=== PATIENT | male | born 1960 | race Caucasian/White ===

== ENCOUNTER 2016-12-15 19:54 | Emergency (ER) | payer OTHER ==
[~2016-12-15] VITALS: Ht 177.8 cm; Wt 83.9 kg
[~2016-12-15 19:54] MED LIST: AUGMENTIN 500M500 MG PO; CIPRO 500MG (E500 MG PO; KEFLEX500 MG PO; LOSARTAN POTASS25 M1 PO; NORCO 5-325 TA1 EACH PO; VICODIN5-300 PO
[2016-12-15 21:19] VITALS: BP 148/87
--- NOTE | 2016-12-15 21:26 | ED INFLUENZA/URI COMPLAINT ---
History of Present Illness General Chief Complaint: General Adult Stated Complaint: FEBRILE PER PATIENT X 1 DAY Source: patient, old records Exam Limitations: no limitations Vital Signs & Intake/Output Vital Signs & Intake/Output Vital Signs Date Time Temp Pulse Resp B/P Pulse O2 O2 Flow FiO2 Ox Delivery Rate 12/15 2118 68 16 148/87 97 Room Air 12/15 2058 100.3 12/15 2001 100.3 87 18 144/94 97 Room Air ED Intake and Output 12/16 0000 12/15 1200 Intake Total Output Total Balance Patient 185 lb Weight Allergies Coded Allergies: No Known Allergies (12/15/16) Reconcile Medications Losartan Potassium 25 MG TABLET 1 TAB PO DAILY BP (Reported) Ondansetron HCl (Zofran) 4 MG TABLET 1 TAB PO Q6-8P PRN NAUSEA Oseltamivir Phosphate (Tamiflu) 75 MG CAPSULE 1 CAP PO BID VIRAL Triage Note: PT TO ED C/O FLU LIKE SYMPTOMS SINCE YESTERDAY: FEVER, LEE, SORETHROAT, COUGH, +N/V. ONE EPISODE OF +N/V AT 0300. TEMP AT HOME 102.6, TOOK NYQUIL AT 0800. TEMP IN TRIAGE 100.3. DID FINISH A MONTH LONG COARSE OF ABX FOR LYME'S LAST WEEK Triage Nurses Notes Reviewed? yes Onset: Abrupt Duration: day(s): (1), constant Timing: recent history Severity: moderate Severity Numbers: 6 No Modifying Factors: none Associated Symptoms: cough, fever/chills, muscle aches, nasal congestion, nasal drainage, shortness of breath HPI: 56-year-old male with history of hypertension presents complaining of flulike symptoms since yesterday. He states he's had fevers as high as 102.6 headache sore throat cough and nausea, 1 episode of vomiting. He denies recent travel or sick contacts no chest pain shortness of breath. Cough is nonproductive no rashes to the skin. Patient recently finished a course of doxycycline for Lyme disease. His last dose of Tylenol was earlier this evening. Patient denies any abdominal pain diarrhea no modifying factors or associated symptoms otherwise. (DAPHNE MABRY,MG) Past History Travel History Traveled to [place] past 21 day No Medical History Any Pertinent Medical History? 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 No (MG MARIE) Review of Systems Review of Systems Constitutional: Reports: see HPI. All Other Systems: Reviewed and Negative Comments Review of systems: See HPI, All other systems negative. Constitutional, no chills no fever, no malaise no weight loss HEENT: No visual changes no sore throat no congestion, no ear pain Cardiovascular: No chest pain , no palpitation , no orthopnea no ankle swelling Skin, no jaundice no rashes, no change in skin Respiratory: No dyspnea no cough no sputum no hemoptysis GI: No nausea no vomiting, no diarrhea, no bloating/constipation : No dysuria No hematuria, no frequency, no discharge Muscle skeletal: No joint pain, no joint swelling, no back pain, no neck pain, Neurologic: No numbness no confusion, no headache Psych: No stress no anxiety no depression,. Heme/endocrine: No bruising no bleeding no polyuria no polydipsia Immunology: No lymphadenopathy, no splenectomy (MG MARIE) Physical Exam Physical Exam General Appearance: well developed/nourished, alert, awake Ears, Nose, Throat: normal ENT inspection, moist mucous membrane, hearing grossly normal, Tympanic normal Comments: Well-developed well-nourished patient in no apparent distress. Head/Face: Atraumatic, no maxillary/frontal sinus tenderness, no facial swelling Eyes: PERRL, EOMI, no conjunctival injection. No nystagmus Ear:External auditory canal and Tympanic membranes clear, no erythema, no FB. Nose: atraumatic.Normal inspection Throat: Moist mucous membranes.Pharynx normal. No pharyngeal erythema/exudate seen. No stridor/drooling or assymetry. No swelling or edema. Neck: Supple, no lymphadenopathy, FROM Back: FROM, Nontender Cardiovascular: Regular rate and rhythms no murmurs Respiratory: No respiratory distress. Patient speaking in full complete sentences. Breath sounds clear to auscultation bilaterally: NO W/R/R Extremities: full range of motion Neuro: Alert and oriented x3 Skin: Warm & dry;No appreciable rash on exposed skin Psych: Mood affect normal, normal memory normal judgment. Core Measures Severe Sepsis Present: No Septic Shock Present: No (MG MARIE) Progress Differential Diagnosis: influenza, pneumonia, pharyngitis, sinusitis, T[place]BORNE ILLNESS VIRAL SYNDROME Plan of Care: Orders Procedure Date/time Status RAPID VIRAL INFLUENZA A 12/15 2005 Complete Microbiology 12/15 2008 NASOPHARYN: Influenza Virus A & B Rapid Smear - COMP Patient clinically appears well medicated Motrin in triage, we'll treat with Tamiflu given ration of symptoms symptoms are consistent with viral syndrome do not believe he requires blood work at this time which is in agreement with advise close follow-up with Dr. Fonseca I discussed with the patient at length all of their results. I had an extensive conversation regarding need for close follow up with their primary care physician this week as well as return precautions. I answered all of their questions, they feel comfortable with the plan and follow-up care. (MG MARIE) Initial ED EKG: none (MG MARIE) Departure Departure Time of Disposition: 2131 Disposition: HOME OR SELF CARE Condition: Stable Clinical Impression Primary Impression: Viral syndrome Referrals: MARIAN MARISCAL,ADEBAYO Carter (PCP/Family) Additional Instructions: FOLLOW UP WITH DR FONSECA THIS WEEK. TYLENOL OR MOTRIN EVERY 4-6 HOURS NEEDED. TAMIFLU AND ZOFRAN DIRECTED. THESE WERE SENT TO [facility]. DRINK PLENTY OF FLUIDS, RETURN WITH ANY CONCERNS Departure Forms: Customer Survey General Discharge Information Prescriptions: Current Visit Scripts Oseltamivir Phosphate (Tamiflu) 1 CAP PO BID #10 CAP Ondansetron HCl (Zofran) 1 TAB PO Q6-8P PRN NAUSEA #10 TAB (MG MARIE) PA/GAS PUMPER Co-Sign Statement Statement: ED Attending supervision documentation- [] I saw and evaluated the patient. I have also reviewed all the pertinent lab results and diagnostic results. I agree with the findings and the plan of care as documented in the PA's/GAS PUMPER's documentation. [X] I have reviewed the ED Record and agree with the PA's/GAS PUMPER's documentation. [] Additions or exceptions (if any) to the PAs/GAS PUMPER's note and plan are summarized below: [] (SHIRA MARISCAL,MARCOS)
[2016-12-15] MEDS ORDERED: ZOFRAN4 M2 PO (21:33)
[2016-12-15] MEDS ORDERED: TAMIFLU75 M1 PO (21:33)
== END 2016-12-15 21:40 ==
LOC: ERH 19:54
DX: B34.9 Viral infection, unspecified (principal)
CPT/HCPCS: 87804; 87804-59

== ENCOUNTER 2017-09-14 09:10 | Emergency (ER) | payer OTHER ==
[~2017-09-14] VITALS: Ht 177.8 cm; Wt 83.9 kg
[~2017-09-14 09:10] MED LIST changes: +CYCLOBENZAPRINE5 M2 PO; +TAMIFLU75 M1 PO; +ZOFRAN4 M2 PO
[2017-09-14 09:12] VITALS: BP 162/92
--- NOTE | 2017-09-14 11:04 | ED INFLUENZA/URI COMPLAINT ---
History of Present Illness General Chief Complaint: Upper Respiratory Sx/Fever Stated Complaint: URI Source: patient, old records Exam Limitations: no limitations Vital Signs & Intake/Output Vital Signs & Intake/Output Vital Signs Date Time Temp Pulse Resp B/P B/P Pulse O2 O2 Flow FiO2 Mean Ox Delivery Rate 09/14 0912 97.4 65 20 162/92 98 Room Air Allergies Coded Allergies: No Known Allergies (12/15/16) Reconcile Medications Amoxicillin/Potassium Clav (Augmentin 875-125 Tablet) 875 MG-125 MG TABLET 1 TAB PO BID uri Codeine Phosphate/Guaifenesi (Guaifen-Codeine 200-20 MG/10ML) 20 MG-200 MG/10 ML LIQUID 10 ML PO Q6HR PRN COUGH Losartan Potassium 25 MG TABLET 1 TAB PO DAILY BP (Reported) Triage Note: PT TO ED C/O URI S/S A 1 WEEK. RUNNY NOSE, COUGH, ACHY, N/V. STATES "ON AND OFF FEVERS". AFEBRILE IN TRIAGE. Triage Nurses Notes Reviewed? yes Onset: Abrupt Duration: week(s): (1), constant Timing: remote history Severity: moderate Severity Numbers: 4 Prior Episodes/Possible Cause: occassional episodes No Modifying Factors: none Associated Symptoms: cough, muscle aches, nasal congestion, sore throat HPI: 56-year-old male presents to the emergency room for evaluation complaining of a one-week history of rhinorrhea congestion and nonproductive cough generalized bodyaches. He reports history objective fevers and chills. He has not been taking anything for symptoms, no modifying factors or associated symptoms or chest pain or shortness of breath. Patient reports his girlfriend has been sick with similar symptoms. (Israel Wen) Past History Travel History Traveled to [place] past 21 day No Medical History Any Pertinent Medical History? 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 No (Israel Wen) Review of Systems Review of Systems Constitutional: Reports: see HPI. All Other Systems: Reviewed and Negative Comments Review of systems: See HPI, All other systems negative. Constitutional, chills fever, no malaise HEENT: sore throat congestion Cardiovascular: No chest pain , no palpitation Skin: no rashes, no change in skin Respiratory: No dyspnea no cough no sputum GI: nausea vomiting, no diarrhea, : No dysuria Muscle skeletal: No joint pain, no back pain, no neck pain, Neurologic: , no headache Psych: No stress no depression,. Heme/endocrine: No bruising no bleeding Immunology: No lymphadenopathy (Israel Wen) Physical Exam Physical Exam General Appearance: well developed/nourished, no apparent distress, alert Ears, Nose, Throat: normal ENT inspection Comments: Well-developed well-nourished patient in no apparent distress. Head/Face: Atraumatic, no maxillary/frontal sinus tenderness, no facial swelling Eyes: PERRL, EOMI, no conjunctival injection Ear:External auditory canal and Tympanic membranes clear, no erythema, no FB. Nose: atraumatic.Normal inspection Throat: Moist mucous membranes.Pharynx normal. No pharyngeal erythema/exudate seen. No stridor/drooling or assymetry. No swelling or edema. Neck: Supple, no lymphadenopathy, FROM Back: FROM Cardiovascular: Regular rate and rhythms no murmurs Respiratory: No respiratory distress. Patient speaking in full complete sentences. Breath sounds clear to auscultation bilaterally: NO W/R/R Extremities: full range of motion Neuro: awake, alert, and oriented to person, place and time. There were no obvious focal neurologic abnormalities. Skin: Warm & dry;No appreciable rash on exposed skin Psych: Mood affect normal, normal memory normal judgment. Core Measures Sepsis Present: No Sepsis Focused Exam Completed? No (Israel Wen) Progress Differential Diagnosis: influenza, otitis, pneumonia, pharyngitis, sinusitis Plan of Care: Orders Procedure Date/time Status RAPID VIRAL INFLUENZA A 09/14 912 Complete Microbiology 09/14 912 NASOPHARYN: Influenza Virus A & B Rapid Smear - COMP I discussed with the patient at length all of their results. I had an extensive conversation regarding need for close follow up with their primary care physician this week as well as return precautions. I answered all of their questions, they feel comfortable with the plan and follow-up care. I discussed with the patient/family the medications that they will receive. I gave them signs and symptoms that could indicate an adverse reaction. I have advised them to limit their activities until they can see how they respond to the medication. Initial ED EKG: none (Israel Wen) Departure Departure Time of Disposition: 1122 Disposition: HOME OR SELF CARE Condition: Stable Clinical Impression Primary Impression: URI (upper respiratory infection) Referrals: Sonya MARISCAL,Jag Carter (PCP/Family) Additional Instructions: augmentin as directed, guaifensin with codeine for cough. use caution as this is will make you drowsy. no driving or drinking alcohol while taking. tylenol or motrin every 4-6 hours for bodyaches, fever, chills. Departure Forms: Customer Survey General Discharge Information Prescriptions: Current Visit Scripts Amoxicillin/Potassium Clav (Augmentin 875-125 Tablet) 1 TAB PO BID #14 TAB Codeine Phosphate/Guaifenesi (Guaifen-Codeine 200-20 MG/10ML) 10 ML PO Q6HR PRN COUGH #150 ML (Israel Wen) PA/TEST ENGINE EVALUATOR Co-Sign Statement Statement: ED Attending supervision documentation- I saw and evaluated the patient. I have also reviewed all the pertinent lab results and diagnostic results. I agree with the findings and the plan of care as documented in the PA's/TEST ENGINE EVALUATOR's documentation. x I have reviewed the ED Record and agree with the PA's/TEST ENGINE EVALUATOR's documentation. [] Additions or exceptions (if any) to the PAs/TEST ENGINE EVALUATOR's note and plan are summarized below: [] (Vivek MARISCAL,Khalif)
[2017-09-14] MEDS ORDERED: GUAIFEN-CODEINE10 ML PO (11:24)
[2017-09-14] MEDS ORDERED: AUGMENTIN 875-1 EACH PO (11:24)
== END 2017-09-14 11:25 ==
LOC: ERH 09:10
DX: J06.9 Acute upper respiratory infection, unspecified (principal)
CPT/HCPCS: 87804; 87804-59

== ENCOUNTER 2018-04-05 13:30 | Inpatient (IN) | payer OTHER ==
[~2018-04-05] VITALS: Ht 177.8 cm; Wt 79.4 kg
[~2018-04-05 13:30] MED LIST changes: +AUGMENTIN 875-1 EACH PO; +GUAIFEN-CODEINE10 ML PO; +LOSARTAN POTAS100 M1 PO; -LOSARTAN POTASS25 M1 PO
[2018-04-05 14:20] LABS: ABSOLUTE BASOPHIL COUNT 0.1 /CUMM (0.0-0.2); ABSOLUTE EOSINOPHIL COUNT 0.1 /CUMM (0.0-0.7); ABSOLUTE GRANULOCYTE CT 4.7 /CUMM (1.4-6.5); ABSOLUTE MONOCYTE COUNT 0.9 /CUMM (0.10-0.60); BASOPHIL % 0.6 % (0.0-2.0); EOSINOPHIL % 1.1 % (0-5); GRANULOCYTE % 53.4 % (42.2-75.2); HEMATOCRIT 47.3 % (42-52); MEAN CORPUSCULAR HGB 30.7 PG (27.0-31.0); MEAN CORPUSCULAR HGB CONC 33.7 G/DL (33.0-37.0); MEAN CORPUSCULAR VOLUME 91.1 FL (80.0-94.0); MEAN PLATELET VOLUME 8.2 FL (7.4-10.4); PLATELET COUNT 299 /CUMM (130-400); RBC DISTRIBUTION WIDTH 14.1 % (11.5-14.5); RED BLOOD CELL CT 5.19 /CUMM (4.70-6.10); WHITE BLOOD CELL COUNT 8.7 /CUMM (4.8-10.8)
--- NOTE | 2018-04-05 14:38 | RADIOLOGY REPORT ---
EXAMINATION: XR CHEST CLINICAL INFORMATION: Shortness of breath. COMPARISON: 04/06/2016 TECHNIQUE: 2 views of the chest were obtained. FINDINGS: No focal consolidation, pleural effusion or pneumothorax. The cardiomediastinal silhouette is unchanged. Old healed left lateral rib fractures. Degenerative changes of the spine. Degenerative changes of the acromioclavicular joints. IMPRESSION: No acute pulmonary process.
--- NOTE | 2018-04-05 14:43 | ED GENERAL ADULT ---
History of Present Illness General Chief Complaint: Dyspnea (COPD, CHF, Other) Stated Complaint: SENT BY DR. FONSECA FOR SOB AFTER MED ADJUSTMENT Source: patient Exam Limitations: no limitations Vital Signs & Intake/Output Vital Signs & Intake/Output Vital Signs Date Time Temp Pulse Resp B/P B/P Pulse O2 O2 Flow FiO2 Mean Ox Delivery Rate 04/06 1024 82 Allergies Coded Allergies: No Known Allergies (12/15/16) Reconcile Medications Aspirin (Ecotrin*) 81 MG TABLET.DR 1 TAB PO DAILY Chest Pain Atorvastatin Calcium (Lipitor) 40 MG TABLET 1 TAB PO DAILY Hyperlipidemia Losartan Potassium 100 MG TABLET 1 TAB PO DAILY HEART (Reported) Triage Note: SENT TO ED BY MD FONSECA FOR SOB STARTING 2 DAYS AGO S/P CHANGE OF LOSARTAN DOSE FROM 50MG TO 100MG. PT REPORTS SOB AT REST. +COUGH "SOMETIMES COUGH UP CLEAR STUFF" PT AWAKE/ALERT. CAP REFILL 2-3 SEC. DENIES PAIN. O2 SAT 99% ON RA. Triage Nurses Notes Reviewed? yes HPI: 57-year-old male with a significant family history of coronary artery disease comes in with chest pain. He reports 2 days ago he had chest pain which then resolved. Subsequently he has had lethargy, decreasing exercise tolerance, diaphoresis, shortness of breath with exertion. Past History Travel History Traveled to [place] past 21 day No Medical History Any Pertinent Medical History? 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 No Review of Systems Review of Systems Constitutional: Reports: no symptoms. EENTM: Reports: no symptoms. Respiratory: Reports: no symptoms, short of breath. Denies: orthopnea, sputum production, wheezing. Cardiovascular: Reports: chest pain. Denies: syncope. GI: Reports: no symptoms. Genitourinary: Reports: no symptoms. Musculoskeletal: Reports: no symptoms. Skin: Reports: no symptoms. Neurological/Psychological: Reports: no symptoms. Physical Exam Physical Exam General Appearance: well developed/nourished, no apparent distress, alert, awake Head: atraumatic Eyes: Bilateral: normal appearance, PERRL, EOMI. Ears, Nose, Throat: normal ENT inspection Neck: normal inspection, supple, full range of motion Respiratory: chest non-tender, no respiratory distress, lungs clear Cardiovascular: regular rate/rhythm Gastrointestinal: normal bowel sounds, soft, non-tender Extremities: normal inspection, normal capillary refill, normal range of motion, no edema Skin: intact, normal color, warm/dry Core Measures ACS in differential dx? Yes CVA/TIA Diagnosis: No Sepsis Present: No Sepsis Focused Exam Completed? No Progress Differential Diagnoses . Plan of Care: Orders Procedure Date/time Status Nothing by Mouth 04/06 L Active Discharge Patient 04/06 UNK Active Initial ED EKG: sinus rate of 61,nl axis and intervals, no acute St-T changes. compared to 04/06/16 no change Prior EKG: unchanged Comments: 57-year-old male with significant family history of coronary artery disease. He reports his father at the age of 62 with a sudden IA and his mother has known coronary artery disease comes in with dyspnea on exertion. He reports some "minimal" chest pain on Wednesday. He reports not feeling like he has energy and dyspnea on exertion. The patient denies diabetes, smoking. 1622 the patient's workup was negative including a negative d-dimer. The patient has negative troponin. Chest x-ray is also normal. But the patient significant family history along with the story but somewhat moderate risk per HEART score. We will speak with the bath mix operator and the patient might need observation. Departure Departure Disposition: STILL A PATIENT Condition: Stable Clinical Impression Primary Impression: Chest pain Referrals: Sonya MARISCAL,Jag Carter (PCP/Family) Departure Forms: Customer Survey General Discharge Information Prescriptions: Current Visit Scripts Aspirin (Ecotrin*) 1 TAB PO DAILY #30 TAB Atorvastatin Calcium (Lipitor) 1 TAB PO DAILY #30 TAB Critical Care Note Critical Care Note Critical Care Time: non-applicable
--- NOTE | 2018-04-05 17:58 | History & Physical ---
Moris Pennington 04/05/18 7732: General Information and HPI MD Statement: I have seen and personally examined MANNIE ENRIQUEZ and documented this H&P. The patient is a 57 year old M who presented with a patient stated chief complaint of shortness of breath and chest discomfort. Source of Information: patient History of Present Illness: 57 year old male with past medical history of hypertension, rheumatoid arthritis sent by Dr. Hassan for evaluation of shortness of breath and chest discomfort. Patient states he had chest discomfort not described as pain that began two days ago along with dyspnea on exertion. Last wednesday, patient noted increased diophoresis claiming he was "soaked" in sweat. On Wednesday prior to admission, patient noticed he was short of breath holding him back from his usual activities. Wednesday prior to admission, patient noticed his blood pressure was lower than usual at 97/63 measured at home. On Wednesday patient noticed at a local [facility] his blood pressure elevated to 210/108 where he decided to visit Dr. Hassan who increased his losartan to 100mg from 50mg. Patient was able to go to work this morning on the day of admission where he continued to have shortness of breath and was advised by Dr. Hassan to go to the ER. Patient claims he was short of breath from walking from parking lot of hospital to the ER. Review of symptoms positive for non-productive cough and headache. Patint denies any history of tobacco/smoking and occasional alcohol use. Patient only takes losartan as a home medication. Mr Enriquez has a history of rheumatoid arthritis and stopped taking prednisone, folate, methotrexate and hydroxychloroquine 2 months ago as he did not feel improvement of arthritis symptoms. Takes meclizine as needed for vertigo. Left hip pain for several months for which he will have a hip replacement in 2 months. 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 Exam & Diagnostic Data Last 24 Hrs of Vital Signs/I&O Vital Signs Date Time Temp Pulse Resp B/P B/P Pulse O2 O2 Flow FiO2 Mean Ox Delivery Rate 04/05 1944 98 Room Air 04/05 1908 98.7 73 18 141/84 98 Room Air 04/05 1646 97.6 54 20 178/88 98 Room Air 04/05 1415 Room Air Room Air 04/05 1340 97.5 68 20 130/80 99 Room Air Intake & Output 04/05 1600 04/05 0800 04/05 0000 Intake Total 0 Output Total Balance 0 Intake, Oral 0 Patient 175 lb Weight Physical Exam General Appearance Alert, Oriented X3, Cooperative, No Acute Distress Skin No Rashes, No Breakdown HEENT Atraumatic, PERRLA, EOMI, Mucous Membr. moist/pink Cardiovascular Regular Rate, Normal S1, Normal S2 Lungs Clear to Auscultation, Normal Air Movement Abdomen Normal Bowel Sounds, Soft, No Tenderness Neurological Normal Speech, Strength at 5/5 X4 Ext, Sensation Intact, Cranial Nerves 3-12 NL, Reflexes 2+ Extremities No Clubbing, No Cyanosis, No Edema Vascular Normal Pulses, Pulses Symmetrical Last 24 Hrs of Labs/Bam: Laboratory Tests 04/05/182024: Troponin I Pending 04/05/18 1413: Anion Gap 13, Estimated GFR > 60, BUN/Creatinine Ratio 13.3, Glucose 78, Hemoglobin A1c Pending, Calcium 9.7, Total Bilirubin 0.8, AST 18, ALT 23, Alkaline Phosphatase 42, Troponin I < 0.01, Total Protein 7.8, Albumin 4.8, Globulin 3.0, Albumin/Globulin Ratio 1.6, Triglycerides 162 H, Cholesterol 256 H, LDL Cholesterol, Calc 166 H, HDL Cholesterol 58, Cholesterol/HDL Ratio 4, TSH 1.880, Thyroxine (T4) 7.1, D-Dimer High Sensitivty < 200, CBC w Diff NO MAN DIFF REQ, RBC 5.19, MCV 91.1, MCH 30.7, MCHC 33.7, RDW 14.1, MPV 8.2, Gran % 53.4, Lymphocytes % 34.7, Monocytes % 10.2 H, Eosinophils % 1.1, Basophils % 0.6, Absolute Granulocytes 4.7, Absolute Lymphocytes 3.0, Absolute Monocytes 0.9 H, Absolute Eosinophils 0.1, Absolute Basophils 0.1 Diagnostic Data EKG Results Sinus Rhythm, rate 70, no acute ST-T wave changes Assessment/Plan Assessment: ASSESSMENT: Patient presented with ongoing shortness of breath, diaphoresis, sweating associated with chest tightness for 3 days. He has history of hypertension. In addition, patient has strong family history of heart attack of his father. Given patients hypertension and strong family history, necessary to rule out acute coronary syndrome. Vitals: 97.5, 68, 20, 130/80 --> 178/88, 99% EKG: SR, 61HR, normal axis and intervals, no acute ST-T changes compared to 04/06 Troponin: Negative Labs CBCs, BE: within normal limits CXRAY: IMPRESSION: No acute pulmonary process. PROBLEM LIST: 1. ATYPICAL CHEST PAIN R/O ACS 2. HYPERTENSION 3. RHEUMATOID ARTHRITIS ATYPICAL CHEST PAIN R/O ACS * Admit to telemetry floor for continuous monitoring * Vitals each shift * Serial troponin and EKG * Aspirin 81 mg daily * Follow up HbA1C, Lipid Panel * Follow up TSH, T4 * Cardiology consulted * Dr. 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 Dyspnea Core Measures/Misc (05/30) Acute Coronary Syndrome ACS Diagnosis: No Congestive Heart Failure Congestive Heart Failure Diagnosis No Cerebrovascular Accident CVA/TIA Diagnosis: No VTE (View Protocol) VTE Risk Factors Age>40 No Mechanical VTE Prophylaxis d/t N/A MechProphylax Ordered No VTE Pharm Prophylaxis d/t NA PharmProphylax ordered Sepsis (View protocol) Sepsis Present: No If YES complete Sepsis Event Note If YES complete Sepsis Event Note Zain Short 04/05/186: Core Measures/Misc (05/30) Sepsis (View protocol) If YES complete Sepsis Event Note If YES complete Sepsis Event Note Resident Review Statement Resident Statement: examined this patient, discussed with product marketing intern, agreed with product marketing intern, discussed with family, reviewed EMR data (avail), discussed with nursing , discussed with case mgmt, reviewed images, amended to note Other Findings: This is a 57-year-old male with past medical history significant for hypertension, rheumatoid arthritis was sent in by Dr. Hassan for evaluation of shortness of breath, chest tightness. Patient reports that he has history of hypertension, takes losartan 50 daily. However since weekend he has been having shortness of breath associated with sweating, diaphoresis, chest tightness. He checked his blood pressure which was 90 SBP. He went to Dr. Hassan's office on Wednesday, blood pressure was 180, increased losartan to 100 mg daily. However his shortness of breath continued, he was sent to the ER for further evaluation by Dr. Hassan. Patient continues to report shortness of breath. Denies any chest pain, diaphoresis, sweating, nausea, vomiting, abdominal pain. No focal neurologic deficits. He denies smoking, alcohol abuse, illicit drug abuse. Patient has history of rheumatoid arthritis, stopped taking prednisone, folate, methotrexate, hydroxychloroquine 2 months back as he feels no improvement of arthritis symptoms. He also takes meclizine as needed for vertigo. He has left hip pain going on for several months, status post cortisone shot, planning for surgery soon. Vitals afebrile, heart rate 68, respiratory 20, blood pressure 130/80, saturating at 99 on room. Exam within normal limits Labs CBCs BEP normal limit, troponin negative, LFTs normal Chest x-ray no acute cardiopulmonary findings EKG sinus rhythm, rate 70, no acute ST-T wave changes 1. Atypical chest pain ruling out ACS Patient presented with ongoing shortness of breath, diaphoresis, sweating associated with chest tightness for 3 days. He has history of hypertension. Also strong family history of heart attack of his father. He has no other risk factors like hyperlipidemia, obesity, smoking. However given his hypertension and strong family history we should rule out acute coronary syndrome. * Admit to telemetry floor * Monitor vitals every shift * Continuous telemetry monitoring * Serial troponin and EKG * Aspirin 81 daily * Follow-up HbA1c, lipid panel * Follow-up thyroid function tests * Follow-up cardiology recommendations. Of note he follows Dr. Johnson as an outpatient given his strong family history. He underwent stress test 5 years ago which was normal. Recently he was scheduled for stress test however because of hip pain he could not do that Hypertension Continue losartan 100 daily Rheumatoid arthritis Patient has history of rheumatoid arthritis, stopped taking prednisone, folate, methotrexate, hydroxychloroquine 2 months back as he feels no improvement of arthritis symptoms DVT prophylaxis subcu heparin Pain pathway Tylenol Full code Regular diet Sonya MARISCAL,[facility] 04/06/18 1022: Core Measures/Misc (05/30) Sepsis (View protocol) If YES complete Sepsis Event Note If YES complete Sepsis Event Note Attending MD Review Statement Attending Statement Attending MD Statement: examined this patient, discuss w/resident/PA/MANAGER DIABETES, agreed w/resident/PA/MANAGER DIABETES, discussed with family, reviewed EMR data (avail), discussed with nursing, discussed with case mgmt, reviewed images, amended to note Attending Assessment/Plan: Doing ok PT with multiple issues with Chest pain prior stress positive Here for rule out mi Other issues as noted above Pt has chronic myalgia and arthralgia REC Admit RUle out mi Cardio to see D dimer neg and no evidence of pe Cont losartan ASA Statin
[2018-04-05 22:58] VITALS: BP 122/88
[2018-04-06 06:00] VITALS: BP 120/78
--- NOTE | 2018-04-06 06:46 | PN- Housestaff ---
Subjective Follow-up For: Chest Pain Exertional Dyspnea Tele-Events Since Last Visit: Normal sinus rhythm, 70, 0.10, 0.16 Subjective: Patient seen and examined at bedside this morning. Plan is that he woke up overnight by nurse stated to not be breathing and having difficulty with shortness of breath. Otherwise patient denies any chest pain, palpitation, diaphoresis, nausea, vomiting abdominal pain. Patient's previous records have been followed and decided by the cardiology team for cardiac cath at [facility] today. Patient will be transferred immediately. Review of Systems Constitutional: Denies: see HPI. Objective Last 24 Hrs of Vital Signs/I&O Vital Signs Date Time Temp Pulse Resp B/P B/P Pulse O2 O2 Flow FiO2 Mean Ox Delivery Rate 04/06 1024 82 04/06 08 94 Room Air Room Air 04/06 0600 98.2 66 20 120/78 97 04/05 2258 97.2 61 20 122/88 98 Room Air 04/05 1944 98 Room Air 04/05 1908 98.7 73 18 141/84 98 Room Air 04/05 1646 97.6 54 20 178/88 98 Room Air 04/05 1415 Room Air Room Air 04/05 1340 97.5 68 20 130/80 99 Room Air Intake & Output 04/06 1600 04/06 0800 04/06 0000 Intake Total 120 Output Total Balance 120 Intake, Oral 120 Patient 175 lb Weight Weight Reported by Patient Measurement Method Physical Exam General Appearance: Alert, Oriented X3, Cooperative Skin: No Rashes, No Breakdown Neck: Supple, No JVD Cardiovascular: Regular Rate, Normal S1, Normal S2 Lungs: Clear to Auscultation, Normal Air Movement Abdomen: Normal Bowel Sounds, Soft, No Tenderness Neurological: Normal Gait, Normal Speech, Strength at 5/5 X4 Ext, Sensation Intact, Reflexes 2+ Extremities: No Clubbing, No Cyanosis, No Edema Vascular: Normal Pulses, Pulses Symmetrical Current Medications: Current Medications Sig/Lupillo Start time Last Medication Dose Route Stop Time Status Admin Acetaminophen 650 MG Q6P PRN 04/05 1830 AC PO Aspirin 81 MG DAILY 04/06 0900 AC 04/06 PO 1022 Aspirin 0 .STK-MED ONE 04/05 1808 DC PO Aspirin 325 MG ONCE ONE 04/05 1730 DC 04/05 PO 04/05 1731 1809 Atorvastatin Calcium 40 MG 1700 04/06 1700 AC PO Heparin Sodium 5,000 UNIT Q8 04/05 2200 AC 04/06 (Porcine) SC 0546 Losartan Potassium 100 MG DAILY 04/06 0900 AC PO Last 24 Hrs of Lab/Bam Results Last 24 Hrs of Labs/Mics: Laboratory Tests 04/06/18 0635: Anion Gap 14, Estimated GFR > 60, BUN/Creatinine Ratio 18.6, CBC w Diff NO MAN DIFF REQ, RBC 5.19, MCV 90.3, MCH 30.5, MCHC 33.8, RDW 13.6, MPV 8.6, Gran % 58.6, Lymphocytes % 28.7, Monocytes % 10.2 H, Eosinophils % 2.0, Basophils % 0.5, Absolute Granulocytes 4.1, Absolute Lymphocytes 2.0, Absolute Monocytes 0.7 H, Absolute Eosinophils 0.1, Absolute Basophils 0 04/06/18 0150: Troponin I < 0.01 04/05/18 2025: Troponin I < 0.01 04/05/18 1413: Anion Gap 13, Estimated GFR > 60, BUN/Creatinine Ratio 13.3, Glucose 78, Hemoglobin A1c 5.7, Calcium 9.7, Total Bilirubin 0.8, AST 18, ALT 23, Alkaline Phosphatase 42, Troponin I < 0.01, Total Protein 7.8, Albumin 4.8, Globulin 3.0, Albumin/Globulin Ratio 1.6, Triglycerides 162 H, Cholesterol 256 H, LDL Cholesterol, Calc 166 H, HDL Cholesterol 58, Cholesterol/HDL Ratio 4, TSH 1.880 , Thyroxine (T4) 7.1, D-Dimer High Sensitivty < 200, CBC w Diff NO MAN DIFF REQ, RBC 5.19, MCV 91.1, MCH 30.7, MCHC 33.7, RDW 14.1, MPV 8.2, Gran % 53.4, Lymphocytes % 34.7, Monocytes % 10.2 H, Eosinophils % 1.1, Basophils % 0.6, Absolute Granulocytes 4.7, Absolute Lymphocytes 3.0, Absolute Monocytes 0.9 H, Absolute Eosinophils 0.1, Absolute Basophils 0.1 Assessment/Plan Assessment: Patient is 57-year-old male with past medical history of hypertension, rheumatoid arthritis on only home medication of the symptoms. Presented to the ED for exertional dyspnea, chest discomfort and episodes of sweating. Patient sent to ED by Dr. Hassan who recently increased his losartan dose after increased blood pressure measurements at home. Patient has a cardiovascular disease as his father of a myocardial infarction. Initial troponins and EKG were negative on admission. However prior records by cardiology team demonstrated an abnormal exercise stress test. Patient has spoken to today and elected to proceed directly to cardiac catheterization for definitive coronary artery assessment. Problem list: 1. Shortness of breath 2. History of abnormal exercise stress test 3. Hypertension 4. Hyperlipidemia 5. Rheumatoid arthritis Plan: * Prior records per cardiology team including Dr. Harshal Kaiser MD demonstrated an abnormal exercise stress test. Recommended to transfer to [facility] for cardiac catheter as and given patient's abnormal stress test findings family history of myocardial infarction and hypertension. * Patient was continued on aspirin 81 and Lipitor 80 daily. * Serial troponins and EKGs did not demonstrate any ST elevations or troponin elevations * Patient to resume Losartan post cardiac catherization Code Status: Full Code Diet: Regular DVT PPX: Heparin SC Problem List: 1. Dyspnea Pain Ratin Pain Location: chest discomfort Pain Goal: Pain 4 or less Pain Plan: as per pain pathway Tomorrow's Labs & Rationales: Discharge DVT/Prophylaxis: mechanical, pharmacological
[2018-04-06 07:53] LABS: ABSOLUTE BASOPHIL COUNT 0 /CUMM (0.0-0.2); ABSOLUTE EOSINOPHIL COUNT 0.1 /CUMM (0.0-0.7); ABSOLUTE GRANULOCYTE CT 4.1 /CUMM (1.4-6.5); ABSOLUTE MONOCYTE COUNT 0.7 /CUMM (0.10-0.60); BASOPHIL % 0.5 % (0.0-2.0); GRANULOCYTE % 58.6 % (42.2-75.2); HEMATOCRIT 46.8 % (42-52); MEAN CORPUSCULAR HGB 30.5 PG (27.0-31.0); MEAN CORPUSCULAR HGB CONC 33.8 G/DL (33.0-37.0); MEAN CORPUSCULAR VOLUME 90.3 FL (80.0-94.0); MEAN PLATELET VOLUME 8.6 FL (7.4-10.4); PLATELET COUNT 259 /CUMM (130-400); RBC DISTRIBUTION WIDTH 13.6 % (11.5-14.5); RED BLOOD CELL CT 5.19 /CUMM (4.70-6.10); WHITE BLOOD CELL COUNT 6.9 /CUMM (4.8-10.8)
[2018-04-06] MEDS ORDERED: LIPITOR40 M1 PO (10:37)
[2018-04-06] MEDS ORDERED: ASPIRIN EC81 M1 PO (10:37)
--- NOTE | 2018-04-06 10:44 | Patient Discharge Instructions ---
Discharge Instructions General Discharge Information You were seen/treated for: Chest Pain-prior stress test positive Exertional dyspnea Watch for these problems: Increased chest pain, palpitations, shortness of breath, nausea, vomiting, diaphoresis Special Instructions: Please follow up with PCP Dr. Hassan within 1 week of discahrge. Please follow up with Infection Control Preventionist within 1 week of discharge. Diet Continue normal diet: Yes Recommended Diet: Heart Healthy Acute Coronary Syndrome Inclusion Criteria At DC or during hospital stay patient has or had the following: ACS DIAGNOSIS Yes Discharge Core Measures Meds if any: Prescribed or Continued at Discharge KIT/ARB if EF <40% Yes Aspirin Yes Beta-Jaye No Statin Yes Meds if any: NOT Prescribed or Continued at Discharge Congestive Heart Failure Inclusion Criteria At DC or during hospital stay patient has or had the following: CHF DIAGNOSIS No Discharge Core Measures Meds if any: Prescribed or Continued at Discharge Meds if any: NOT Prescribed or Continued at Discharge Cerebrovascular accident Inclusion Criteria At DC or during hospital stay patient has or had the following: CVA/TIA Diagnosis No Discharge Core Measures Meds if any: Prescribed or Continued at Discharge Meds if any: NOT Prescribed or Continued at Discharge Venous thromboembolism Inclusion Criteria VTE Diagnosis No VTE Type NONE VTE Confirmed by (Test) NONE Discharge Core Measures - Per Current guidelines, there needs to be overlap - treatment for the first 5 days of Warfarin therapy. - If discharged on Warfarin prior to 5 days of - overlap therapy, the patient will need to be - assessed for post discharge needs including - *Post discharge parental anticoagulation - *Warfarin and/or parental anticoagulation education - *Follow up date to check INR post discharge At least 5 days overlap therapy as Inpatient No Meds if any: Prescribed or Continued at Discharge Note: Overlap Therapy is Warfarin and Anticoagulant Meds if any: NOT Prescribed or Continued at Discharge
--- NOTE | 2018-04-06 10:47 | Discharge Summary ---
Visit Information Visit Dates Admission Date: 04/05/18 Discharge Date: 04/06/2018 Hospital Course Course Attending Physician: Sonya MARISCAL,Jag Carter Primary Care Physician: Jag Hassan MD Hospital Course: This is a 57-year-old male with past medical history significant for hypertension, rheumatoid arthritis was sent in by Dr. Hassan for evaluation of shortness of breath, chest tightness. Patient reports that he has history of hypertension, takes losartan 50 daily. However since weekend he has been having shortness of breath associated with sweating, diaphoresis, chest tightness. He checked his blood pressure which was 90 SBP. He went to Dr. Hassan's office on Wednesday, blood pressure was 180, increased losartan to 100 mg daily. However his shortness of breath continued, he was sent to the ER for further evaluation by Dr. Hassan. Patient continues to report shortness of breath. Denies any chest pain, diaphoresis, sweating, nausea, vomiting, abdominal pain. No focal neurologic deficits. He denies smoking, alcohol abuse, illicit drug abuse. Patient has history of rheumatoid arthritis, stopped taking prednisone, folate, methotrexate, hydroxychloroquine 2 months back as he feels no improvement of arthritis symptoms. He also takes meclizine as needed for vertigo. He has left hip pain going on for several months, status post cortisone shot, planning for surgery soon. Vitals afebrile, heart rate 68, respiratory 20, blood pressure 130/80, saturating at 99 on room. Exam within normal limits Labs CBCs BEP normal limit, troponin negative, LFTs normal Chest x-ray no acute cardiopulmonary findings EKG sinus rhythm, rate 70, no acute ST-T wave changes 1. Atypical chest pain ruling out ACS Patient presented with ongoing shortness of breath, diaphoresis, sweating associated with chest tightness for 3 days. He has history of hypertension. Also he has strong family history of heart attack of his father. He has no other risk factors like obesity, smoking. However given his hypertension, hyperlipidemia and strong family history we should rule out acute coronary syndrome. He was admitted to telemetry floor, monitored continuously. Serial troponins and EKGs were done with no acute ST elevations or troponin elevation. He was continued on aspirin 81 daily and Lipitor 80 daily. Of note he follows Dr. Johnson as an outpatient given his strong family history of heart attacks. He underwent stress test 5 years ago which was normal. He underwent treadmill stress test recently with abnormal findings and ischemia. He was scheduled for nuclear stress test however because of hip pain/ankle pain he could not do that. He was seen by Harshal Kaiser MD, recommended to transfer to [facility] for cardiac catheterization given his abnormal stress test findings. Hypertension Continued losartan 100 daily Rheumatoid arthritis Patient has history of rheumatoid arthritis, stopped taking prednisone, folate, methotrexate, hydroxychloroquine 2 months back as he feels no improvement of arthritis symptoms DVT prophylaxis subcu heparin Pain pathway Tylenol Full code Patient is n.p.o. waiting for cardiac cath procedure. Allergies: Coded Allergies: No Known Allergies (12/15/16) Pertinent Lab Results: FINDINGS: No focal consolidation, pleural effusion or pneumothorax. The cardiomediastinal silhouette is unchanged. Old healed left lateral rib fractures. Degenerative changes of the spine. Degenerative changes of the acromioclavicular joints. IMPRESSION: No acute pulmonary process. Disposition Summary Disposition Principal Diagnosis: Acute chest pain Additional Diagnosis: Hypertension Discharge Disposition: other general hospital Discharge Instructions General Discharge Information Code Status: Full Code Patient's Diet: Patient is n.p.o. Patient's Activity: As tolerated Follow-Up Instructions/Appts: Follow-up with PCP in 1 week after discharge Follow-up with client technical specialist in 1 week after discharge Medications at Discharge Discharge Medications: Continue taking these medications: Losartan Potassium (Losartan Potassium) 100 MG TABLET 1 Tablet ORAL DAILY Comments: NOT GIVEN Start taking the following new medications: Aspirin (Ecotrin*) 81 MG TABLET. 1 Tablet ORAL DAILY Qty = 30 No Refills Comments: Last Taken: 04/06/18 Time: 10:30 AM Atorvastatin Calcium (Lipitor) 40 MG TABLET 1 Tablet ORAL DAILY Qty = 30 No Refills Comments: NOT GIVEN Copies To: Sonya MARISCAL,Jag Carter Attending MD Review Statement Documenting Attending: Jag Hassan MD Other Findings: Seen and examined agree with above pt to go for cath will follow
--- NOTE | 2018-04-06 11:31 | Cons- Cardiology ---
General Information and HPI Consulting Request Date of Consult: 04/06/18 Requested By: Sonya MARISCAL,Jag Carter Reason for Consult: Shortness of breath Source of Information: patient, old records History of Present Illness: This is a pleasant 57-year-old male with a past medical history of hypertension, hyperlipidemia, and chronic arthralgia who presented to [facility] with a chief complaint of moderate intensity, intermittent shortness of breath along with diaphoresis; sometimes exacerbated with exertion; reports minimal associated chest discomfort. Denies orthopnea or paroxysmal nocturnal dyspnea. Denies productive cough. Does report exposure to mold at work but has been using his respirator. I did see the patient in 2016 in my office for shortness of breath; he had a grossly normal echocardiogram but abnormal exercise stress test; he was scheduled for confirmatory nuclear stress test but did not complete the test. Prior to his recent symptoms he had been feeling well overall. No slurring of speech, focal weakness, syncope, or bleeding. He does report his father of myocardial infarction. Allergies/Medications Allergies: Coded Allergies: No Known Allergies (12/15/16) Home Med List: Aspirin (Ecotrin*) 81 MG TABLET.DR 1 TAB PO DAILY Chest Pain Atorvastatin Calcium (Lipitor) 40 MG TABLET 1 TAB PO DAILY Hyperlipidemia Losartan Potassium 100 MG TABLET 1 TAB PO DAILY HEART (Reported) Current Medications: Current Medications Sig/Lupillo Start time Last Medication Dose Route Stop Time Status Admin Acetaminophen 650 MG Q6P PRN 04/05 1830 AC PO Aspirin 81 MG DAILY 04/06 0900 AC 04/06 PO 1022 Aspirin 0 .STK-MED ONE 04/05 1808 DC PO Aspirin 325 MG ONCE ONE 04/05 1730 DC 04/05 PO 04/05 1731 1809 Atorvastatin Calcium 40 MG 1700 04/06 1700 AC PO Heparin Sodium 5,000 UNIT Q8 04/05 2200 AC 04/06 (Porcine) DE 0546 Losartan Potassium 100 MG DAILY 04/06 0900 AC PO Review of Systems Review of Systems: Review of systems as per HPI. The remainder of a 10 point review of systems was reviewed and was otherwise negative. Past History Travel History Traveled to [place] past 21 day No Medical History Blood Transfusion Hx: No Neurological: NONE EENT: NONE Cardiovascular: hypertension, VARICOSE VEINS Respiratory: asthma, bronchitis Gastrointestinal: NONE Hepatic: NONE Renal: NONE Musculoskeletal: LYMES ARTHRITIS Psychiatric: NONE Endocrine: NONE Blood Disorders: NONE Cancer(s): NONE PMO LEAD/Reproductive: NONE Surgical History Surgical History: ANKLE FX REPAIR Psychosocial History Where Do You Live? Home Smoking Status: Never Smoked ETOH Use: occasional use Exam & Diagnostic Data Vital Signs and I&O Vital Signs Date Time Temp Pulse Resp B/P B/P Pulse O2 O2 Flow FiO2 Mean Ox Delivery Rate 04/06 1024 82 04/06 0800 94 Room Air Room Air 04/06 0600 98.2 66 20 120/78 97 04/05 2258 97.2 61 20 122/88 98 Room Air 04/05 1944 98 Room Air 04/05 1908 98.7 73 18 141/84 98 Room Air 04/05 1646 97.6 54 20 178/88 98 Room Air 04/05 1415 Room Air Room Air 04/05 1340 97.5 68 20 130/80 99 Room Air Intake & Output 04/06 1600 04/06 0800 04/06 0000 04/05 1600 04/05 0800 04/05 0000 Intake Total 120 0 Output Total Balance 120 0 Intake, Oral 120 0 Patient 175 lb 175 lb Weight Weight Reported by Patient Measurement Method Physical Exam: General: no apparent distress. Alert. Eyes: No obvious scleral icterus. HEENT: No jugular venous distention or abnormal jugular venous pulsations. Cardiovascular: Normal intensity S1/S2. PMI not grossly displaced. Respiratory: Lungs clear to auscultation bilaterally. Abdomen: Soft, nontender with no guarding or rebound tenderness. Musculoskeletal: No clubbing or cyanosis noted Skin: warm Neurologic: No gross focal deficits noted. Lymph: No gross lymphadenopathy. Labs/Bam Results: Laboratory Tests 04/06 04/06 04/05 0635 0150 2024 Chemistry Sodium (137 - 145 mmol/L) 142 Potassium (3.5 - 5.1 mmol/L) 4.1 Chloride (98 - 107 mmol/L) 106 Carbon Dioxide (22 - 30 mmol/L) 21 L Anion Gap (5 - 16) 14 BUN (9 - 20 mg/dL) 13 Creatinine (0.7 - 1.2 mg/dL) 0.7 Estimated GFR (>60 ml/min) > 60 BUN/Creatinine Ratio (7 - 25 %) 18.6 Troponin I (<0.11 ng/ml) < 0.01 < 0.01 Hematology CBC w Diff NO MAN DIFF REQ WBC (4.8 - 10.8 /CUMM) 6.9 RBC (4.70 - 6.10 /CUMM) 5.19 Hgb (14.0 - 18.0 G/DL) 15.8 Hct (42 - 52 %) 46.8 MCV (80.0 - 94.0 FL) 90.3 MCH (27.0 - 31.0 PG) 30.5 MCHC (33.0 - 37.0 G/DL) 33.8 RDW (11.5 - 14.5 %) 13.6 Plt Count (130 - 400 /CUMM) 259 MPV (7.4 - 10.4 FL) 8.6 Gran % (42.2 - 75.2 %) 58.6 Lymphocytes % (20.5 - 51.1 %) 28.7 Monocytes % (1.7 - 9.3 %) 10.2 H Eosinophils % (0 - 5 %) 2.0 Basophils % (0.0 - 2.0 %) 0.5 Absolute Granulocytes (1.4 - 6.5 /CUMM) 4.1 Absolute Lymphocytes (1.2 - 3.4 /CUMM) 2.0 Absolute Monocytes (0.10 - 0.60 /CUMM) 0.7 H Absolute Eosinophils (0.0 - 0.7 /CUMM) 0.1 Absolute Basophils (0.0 - 0.2 /CUMM) 0 07/24 1413 Chemistry Sodium (137 - 145 mmol/L) 141 Potassium (3.5 - 5.1 mmol/L) 4.0 Chloride (98 - 107 mmol/L) 102 Carbon Dioxide (22 - 30 mmol/L) 25 Anion Gap (5 - 16) 13 BUN (9 - 20 mg/dL) 12 Creatinine (0.7 - 1.2 mg/dL) 0.9 Estimated GFR (>60 ml/min) > 60 BUN/Creatinine Ratio (7 - 25 %) 13.3 Glucose (65 - 99 mg/dL) 78 Hemoglobin A1c (4.2 - 5.8 %) 5.7 Calcium (8.4 - 10.2 mg/dL) 9.7 Total Bilirubin (0.2 - 1.3 mg/dL) 0.8 AST (17 - 59 U/L) 18 ALT (21 - 72 U/L) 23 Alkaline Phosphatase (< 127 U/L) 42 Troponin I (<0.11 ng/ml) < 0.01 Total Protein (6.3 - 8.2 g/dL) 7.8 Albumin (3.5 - 5.0 g/dL) 4.8 Globulin (1.9 - 4.2 gm/dL) 3.0 Albumin/Globulin Ratio (1.1 - 2.2 %) 1.6 Triglycerides (<150 mg/dL) 162 H Cholesterol (< 200 MG/DL) 256 H LDL Cholesterol, Calc (65 - 129 mg/dL) 166 H HDL Cholesterol (40 - 60 mg/dL) 58 Cholesterol/HDL Ratio (0.00 - 4.88 %) 4 TSH (0.270 - 4.200 uIU/mL) 1.880 Thyroxine (T4) (4.5 - 10.9 ug/dL) 7.1 Coagulation D-Dimer High Sensitivty (0 - 243 ng/ml) < 200 Hematology CBC w Diff NO MAN DIFF REQ WBC (4.8 - 10.8 /CUMM) 8.7 RBC (4.70 - 6.10 /CUMM) 5.19 Hgb (14.0 - 18.0 G/DL) 15.9 Hct (42 - 52 %) 47.3 MCV (80.0 - 94.0 FL) 91.1 MCH (27.0 - 31.0 PG) 30.7 MCHC (33.0 - 37.0 G/DL) 33.7 RDW (11.5 - 14.5 %) 14.1 Plt Count (130 - 400 /CUMM) 299 MPV (7.4 - 10.4 FL) 8.2 Gran % (42.2 - 75.2 %) 53.4 Lymphocytes % (20.5 - 51.1 %) 34.7 Monocytes % (1.7 - 9.3 %) 10.2 H Eosinophils % (0 - 5 %) 1.1 Basophils % (0.0 - 2.0 %) 0.6 Absolute Granulocytes (1.4 - 6.5 /CUMM) 4.7 Absolute Lymphocytes (1.2 - 3.4 /CUMM) 3.0 Absolute Monocytes (0.10 - 0.60 /CUMM) 0.9 H Absolute Eosinophils (0.0 - 0.7 /CUMM) 0.1 Absolute Basophils (0.0 - 0.2 /CUMM) 0.1 Diagnostic Data EKG Results Tracing was personally reviewed and shows sinus rhythm with no infarct pattern CXR Results No CHF or pneumonia Other Results Telemetry tracings were personally reviewed and shows sinus rhythm Assessment/Plan Assessment/Plan 1. Shortness of breath 2. History of abnormal exercise stress test 3. Hypertension 4. Hyperlipidemia 5. Chronic arthralgia Etiology of the patient's shortness of breath is not clear. No evidence of CHF or pneumonia. D-dimer within normal limits. Given his cardiac risk factors including hypertension, hyperlipidemia, family history, and history of abnormal exercise stress test, coronary artery disease is in the differential diagnosis although acute plaque rupture is unlikely; serial troponins are negative. We discussed risks versus benefits of various options at length today and at this time he elects to proceed directly to cardiac catheterization for definitive coronary artery assessment. Continue on aspirin and statin therapy. Resume ARB status post cardiac catheterization. Case was discussed with the medical team. Adryan Kaiser MD [facility] Consult Acknowledgment - Thank you for your consult request.
== END 2018-04-06 12:30 | disposition short-term general hospital (02) | DRG 313 ==
LOC: ERH 13:30 → ERHI 17:57 → ENRESERV 18:20 → ENTRNSPT 18:55 → 1NO 19:01 → CMPTRNSPT 19:12 → 1NO 04-06 08:52 → ENPENDDIS 04-06 10:56 → 1NO 04-06 12:30
PROVIDERS: Hospitalist; Physician Assistant Medical
DX: R07.9 Chest pain, unspecified (principal); I10 Essential (primary) hypertension; M06.9 Rheumatoid arthritis, unspecified; Z82.49 Family history of ischemic heart disease and other diseases of the circulatory system; E78.5 Hyperlipidemia, unspecified; J45.909 Unspecified asthma, uncomplicated
CPT/HCPCS: 1NP; 36415; 36592; 71046; 82436; 93005; 93010; J1644; J3490